=== PATIENT | male | born 1950 | race Caucasian/White ===

== ENCOUNTER 2016-05-17 10:48 | Inpatient (IN) | payer BC ==
[~2016-05-17] VITALS: Ht 157.5 cm; Wt 63.0 kg
--- NOTE | ~2016-05-17 | ECH ---
Transthoracic Echocardiography Report (TTE) Demographics Patient Name BRANDEE WATSON, Date of Study 05/17/2016 WILLIAM Jensen Patient Number [id number] Visit Number [id number] Date of 1950 Room Number 419 Gender Male Number Age 65 year(s) Referring Sally Crocker Director Inbound Sales Martha Rodriguez Physician Bette Mack MD [facility] Yao Roman MD Physician Interpreting Julianna Barrow Physiologist Physician Supervising Ordering Yao Roman MD/MLP Physician Nurse Stress Beamster Conclusions Summary Technically good exam. The estimated left ventricular ejection fraction is 30-35%. Diastolic assessment reveals Grade I diastolic dysfunction. Informed consent was obtained, bubble study was done, there is no evidence for a PFO or ASD. Procedure Type of Study TTE procedure:Echo Complete SF. Procedure Date Date: 05/17/2016 Start: 02:21 PM Technical Quality: Good visualization Indications:CVA, Ischemic Cardiomyopathy, Diabetes, Coronary artery disease and Hypertension. Additional Indications:History of MS/ETOH abuse Appropriate Use Criteria: 9 Height: 62 inches Weight: 136 pounds BSA: 1.62 m Rhythm: NSR HR: 64 bpm BP: 164/87 mmHg Allergies - No known allergies. M-Mode/2D Measurements LV Diastolic Dimension: 5.1 cm LV Systolic Dimension: 3.52 cm LV Septum Diastolic: 0.84 cm LV PW Diastolic: 0.87 cm AO Root Dimension: 2.73 cm Cardiac Output: 2.98 l/min LA Dimension: 3.58 cm Cardiac Index: 1.84 l/min*m RV Diastolic Dimension: 3.27 cm LA volume index: 26 ml/m LVOT: 1.89 cm LVOT VTI: 16.61 cm RV Base: 3.6 cm LV Stroke volume: 46.58 ml RV Mid: 2 cm LV Stroke volume index: 28.75 ml/m TAPSE: 2 cm TDI-S': 11 cm/s Doppler Measurements AV Peak Velocity: 1.2 m/s MV Peak E-Wave: 0.78 m/s AV Peak Gradient: 5.76 mmHg MV Peak A-Wave: 0.97 m/s AV Mean Gradient: 3.33 mmHg MV E/A Ratio: 0.8 LVOT Peak Velocity: 0.71 m/s MV P1/2t: 48.5 msec AV Area (Continuity):1.65 cm MV Deceleration Time: 186.5 msec MV Area (PHT): 4.54 cm PV Peak Velocity: 0.79 m/s E' Septal Velocity: 0.05 m/s PV Peak Gradient: 2.51 mmHg E' Lateral Velocity: 0.07 m/s A' Septal Velocity: 0.09 m/s A' Lateral Velocity: 0.09 m/s RA Area: 9.87 cm Findings Left Ventricle Normal left ventricle size and function. Diastolic assessment reveals Grade I diastolic dysfunction. Right Ventricle Normal right ventricle structure and function. Left Atrium Normal left atrial size. Informed consent was obtained, bubble study was done, there is no evidence for a PFO or ASD. Right Atrium Normal right atrial size. Mitral Valve Normal mitral valve structure and function. Mild mitral regurgitation by color Doppler. Aortic Valve Normal aortic valve structure and function. Tricuspid Valve Normal tricuspid valve structure and function. Trivial tricuspid regurgitation by color Doppler. Insufficient jet to calculate pulmonary pressures. Pulmonic Valve Normal pulmonic valve structure and function. Pericardial Effusion No evidence of pericardial effusion. Miscellaneous Visualized portions of the aortic root and ascending aorta appear normal in size. Pleural Effusion No evidence of pleural effusion. Contractility Score LV regional wall motion:(0-Non visualized 1-Normal 2-Hypokinesis 3-Akinesis 4-Dyskinesis 5-Aneurysm) Signature
[~2016-05-17 10:48] MED LIST: ASA CHILDREN'S81 MG PO; COREG DPS3.125 MG PO; HEPARIN IV; HEPARIN5000 UNIT1 IV; HUMALOG, N100 UNITS/ SQ; HYTONE-DPS 2.5%30 GM TP; LEVAQUIN DPS750 MG PO; LEVEMIR100 UNIT/1 SQ; LIPITOR40 MG PO; NORMAL SALINE FL5 ML IV; PROAIR HFA8.5 GM IH; ROCALTROL DP0.25 MCG PO; SODIUM BIC50 MEQ/50 IV; THERA1 EACH PO
--- NOTE | 2016-05-20 13:16 | CO ---
ADMIT: 05/17/2016 RM/LOC: 419 [facility] MR#: [id number] 2620 [facility] [address] [place], [place] [address] WILLIAM CARDOSO [address] [place] [address] Consultation SEX: M AGE: 65 : 1950 DATE OF CONSULTATION: 05/17/2016 ATTENDING PHYSICIAN: Harley Samayoa CONSULTING PHYSICIAN: Obi Zavala MD REASON FOR CONSULT: Stroke-like symptoms. MARGARETTE Cha dictating for Obi Zavala MD HISTORY OF PRESENT ILLNESS: Mr. aVnce is a 65-year-old man, who I had the opportunity to consult for Cardiology regarding his stroke-like symptoms. The patient has significant personal history of coronary artery disease. The patient also has significant family history of coronary artery disease in first degree relatives. The patient is a never smoker. The patient admitted to heavy alcohol use for several years and has remained abstinent since he was 35 years old. The patient stated that his stroke-like symptoms were similar to his symptoms approximately 3 months ago. When he was evaluated for a stroke and underwent a cath, which revealed a severe 3-vessel heart disease. The patient stated that his symptoms began this last Monday. His noticed that he had speech deficit. The patient stated that he went to work the next day on Monday and his co-workers realized he was talking differently. The patient also stated that he developed a sense of chest pain in his chest when he was moving boxes and this went away when he sat down to rest. The patient stated that there was no radiation with the pain and he rated the pain a 7/10. In the past, he has had fainting episodes at work without loss of consciousness. The patient states that the pain has not reoccurred since his episode yesterday. PAST MEDICAL HISTORY: Significant for coronary artery disease, history of 3- vessel heart disease, ischemic cardiomyopathy, type 2 diabetes, hypertension, chronic kidney disease, and diabetic neuropathy. PAST SURGICAL HISTORY: Significant for hernia repair, heart cath in December 2015, eye surgery, cataract extraction, and sinus surgery. FAMILY HISTORY: His father from heart disease at age 64, and his mother at age 65 from diabetes. He also states his brothers from diabetes, but he does not know what age. SOCIAL HISTORY: The patient is currently for 33 years. He currently works at [id number]. He states that he works really long hours. The patient admits to 1 cup of caffeine per day. He also admits to heavy alcohol use in the past, but quit at age 34. He denies drug abuse or tobacco use. ALLERGIES: NO KNOWN DRUG ALLERGIES. ADMIT: 05/17/2016 RM/LOC: 419 [facility] MR#: [id number] [address] [address] WILLIAM CARDOSO [address] [place] [address] Consultation SEX: M AGE: 65 : 1950 HOME MEDICATIONS: 1. Aspirin 81 mg. 2. Atorvastatin 20 mg tablet. 3. Levemir 20 units. 4. Carvedilol 6.25 mg b.i.d. 5. Ramipril 2.5 mg daily. 6. Pantoprazole 40 mg daily. 7. Plavix 75 mg daily. 8. Atorvastatin 40 mg daily. 9. NovoLog sliding scale a.c. and HS. REVIEW OF SYSTEMS: GENERAL: The patient tires easily, and he first notices it at work when he is lifting heavy things and walking a lot. Recent fever, chills, and sweats. The patient denies recent weight gain or weight loss. EYES: The patient wears glasses. He admits to blurry vision, cataracts, partial or total loss of vision, but denies glaucoma. ENT: Denies hearing loss or problems with nose, mouth or throat. RESPIRATORY: The patient admits to wheezing, bronchitis, chronic cough, snoring loudly, waking up 2 to 3 times per night, and tiring first thing in the morning. The patient denies asthma or bloody sputum. GASTROINTESTINAL: The patient admits to reflux, but denies heartburn, difficulty swallowing, hiatal hernia, stomach ulcer, gallbladder or liver disease, or bloody stools. GENITOURINARY: The patient admits to kidney stones and kidney failure, but denies blood in urine, problems with urination or urinary infection. MUSCULOSKELETAL: The patient admits to muscle or joint pains, but denies arthritis or gout. ENDOCRINE: Denies history of thyroid dysfunction or diabetes. HEMATOLOGIC AND LYMPHATIC: The patient admits to bleeding problems, but denies anemia or cancer. NEUROLOGIC: The patient admits to numbness and tingling episodes, but denies chronic headache, stroke, or seizure disorder. PSYCHIATRIC: Denies history of mental illness or feelings of depression. PHYSICAL EXAMINATION: Per Dr. Zavala. VITAL SIGNS: Temperature is 97.4, pulse is 74, respirations 13, BP is 164/87, O2 saturation is 98% on room air, weight is 136, which is up 1 pound since this morning. Speech deficit and vision deficit are noted. SKIN: [place], warm and dry. EYES: Sclerae clear. No xanthelasmas. ENT: Oral mucosa is pink and moist. No jugular venous distention or carotid bruits. CHEST: Respirations are even and unlabored. Lungs are clear to auscultation. HEART: Regular rate and rhythm. Normal S1, S2. No murmurs, rubs or gallops. ABDOMEN: Soft and nontender. MUSCULOSKELETAL: Gait is normal. EXTREMITIES: Peripheral pulses palpable. No clubbing, cyanosis or edema. PSYCHIATRIC: Alert and oriented. Mood and affect are appropriate. ADMIT: 05/17/2016 RM/LOC: 419 [facility] MR#: [id number] [address] [address] WILLIAM CARDOSO [address] [place] [address] Consultation SEX: M AGE: 65 : 1950 DIAGNOSTIC DATA: Sodium is 141, potassium is 4.0, chloride is 107, bicarb is 26, BUN is 27, creatinine is 1.7, and glucose is 251. White blood cell count is 8.5, hemoglobin is 14.4, hematocrit is 42.6, platelets are 176, magnesium is 2.4, calcium is 8.3, troponin is 7.630, triglycerides are 76, cholesterol is 132, and GFR is 42. Chest x-ray revealed no acute cardiopulmonary process. EKG revealed ST elevation in septal leads and ischemic changes. IMPRESSION AND PLAN: Per Dr. Zavala. 1. Stroke-like symptoms. 2. Elevated troponin. He has severe 3-vessel coronary artery disease that is not amenable to CABG. He is getting exertional chest pain at work. Suspect increase in troponin secondary to severe coronary artery disease and possible stroke. At this time, we will trend enzymes and start heparin, add Imdur and do an echocardiogram. 3. Coronary artery disease. 4. Diabetes mellitus. 5. Chronic kidney disease. 6. Hypertension. 7. Ischemic cardiomyopathy with 40% ejection fraction. Thank you for the Cardiology consult. I have read and agreed with documentation that has been completed regarding this visit. By signing this record, I attest that the documentation was completed in my physical presence and is an accurate record of the encounter. SAULO Cha Student / Obi Zavala MD / robert JOB #: [id number] CC: Harley Samayoa, Attending Physician Harley Samayoa, Family Physician
[2016-05-20] MEDS ORDERED: COREG DPS6.25 MG PO (21:09)
[2016-05-20] MEDS ORDERED: ALTACE2.5 MG PO (21:09)
[2016-05-20] MEDS ORDERED: IMDUR DPS30 MG PO (21:10)
[2016-05-20] MEDS ORDERED: PROTONIX40 MG PO (21:10)
[2016-05-20] MEDS ORDERED: ASA325 MG PO (21:10)
[2016-05-20] MEDS ORDERED: PLAVIX75 MG PO (21:10)
--- NOTE | 2016-05-25 10:42 | HP ---
ADMIT: 05/17/2016 RM/LOC: 419 [facility] MR#: [id number] 26[address] [facility] [address] [place], [place] [address] IRVINWILLIAM COTO [address] [place] [address] History and Physical SEX: M AGE: 65 : 1950 DATE OF SERVICE: CHIEF COMPLAINT: Slurred speech and chest pain with exertion. HISTORY OF PRESENT ILLNESS: The patient is a 65-year-old male with known history of coronary artery disease with severe 3-vessel disease, not to be a good candidate for surgery with medical therapy recommended, also has a history of noncompliance, uncontrolled diabetes, hyperlipidemia, peripheral neuropathy, hypertension, and notes approximately 48 hours of slurred speech. Denies any significant other deficits, however, he does have some chronic tingling in his arms. Also notes some exertional chest pain. He was last seen by myself little over 2 months ago. He was instructed to follow up in 1 week. He denies any other concerns or complaints at this time. PAST MEDICAL HISTORY: Coronary artery disease, diabetes, hyperlipidemia, BPH, CKD, NSTEMI, congestive heart failure, hypoxic respiratory failure, acute kidney injury, in December 2015 he had 1 to 39% plaque stenosis of bilateral carotids. PAST SURGICAL HISTORY: Hernia and finger. ALLERGIES: NONE. MEDICATIONS: 1. Levemir 20 units at night. 2. Coreg 6.25 b.i.d. 3. Ramipril 2.5 daily. 4. NovoLog sliding scale. 5. Plavix 75 once a day. 6. Protonix 40 daily. 7. Lipitor 40 at bedtime. 8. Aspirin 81 daily. 9. Rocaltrol. FAMILY HISTORY: Coronary artery disease. REVIEW OF SYSTEMS: Forty-eight hours of slurred speech, exertional chest pain, chronic numbness in his arms. SOCIAL HISTORY: Denies tobacco, alcohol, or drug use. PHYSICAL EXAMINATION: VITAL SIGNS: Blood pressure 184/84, pulse 74, temp 96.6, weight is 143, and O2 sats 98% on room air. GENERAL: He is alert, awake, and oriented. He has had some slurred speech. HEENT: Head is normocephalic, atraumatic. Pupils round and reactive to light. HEART: Regular rate and rhythm. LUNGS: Slightly diminished throughout. ABDOMEN: Soft, nontender. No significant clubbing, cyanosis, or edema. NEURO: Cranial nerves II through XII grossly intact. No focal, motor, or ADMIT: 05/17/2016 RM/LOC: 419 [facility] MR#: [id number] [address] [address] WILLIAM CARDOSO [address] [place] [address] History and Physical SEX: M AGE: 65 : 1950 sensory deficits. ASSESSMENT: This 65-year-old male with: 1. Known coronary artery disease, not a surgical candidate. 2. Slurred speech, probable cerebrovascular accident. 3. Diabetes. 4. Noncompliance. 5. Hyperlipidemia. 6. Hypertension. 7. History of oxa-AW-wbnzjpmpv myocardial infarction. 8. Chronic kidney disease. 9. History of respiratory failure. PLAN: We will admit him to telemetry. Consult Cardiology for his exertional chest pain. Consult Neurology for his slurred speech and possible CVA. We will get a chest x-ray. Trend his cardiac enzymes. Check an echo as well as an MRI. He had his carotid done approximately 5 months ago and we will defer to Cardiology on this. We will check appropriate blood work, adjust his insulin and treat accordingly. Harley Samayoa MD/ robert JOB #: [id number] CC: Harley Samayoa, Attending Physician Harley Samayoa, Family Physician
--- NOTE | 2016-05-31 10:27 | CO ---
ADMIT: 05/17/2016 RM/LOC: 419 [facility] MR#: [id number] 2620 [facility] [address] [place], [place] [address] WILLIAM CARDOSO [address] [place] [address] Consultation SEX: M AGE: 65 : 1950 DATE OF CONSULTATION: 05/17/2016 ATTENDING PHYSICIAN: Harley Samayoa CONSULTING PHYSICIAN: Frederick Amos MD REASON FOR CONSULTATION: Ischemic stroke. HISTORY OF PRESENT ILLNESS: The patient is a 65-year-old gentleman with past medical history as below, who was admitted for evaluation of stroke-like symptoms, which included right facial weakness and speech problem. This started on Monday05/15/2016. As per medication reconciliation, the patient is on Plavix 75 daily. However, talking to the patient and his , through medical interpreter, they do not recall this name. I am willing to confirm this with the pharmacy. The patient reports that he takes aspirin 81 mg daily. The patient has elevated troponin and was already seen by Cardiology, who would like to start heparin drip for ACS protocol. PAST MEDICAL HISTORY: Positive for diabetes x15 years with complication of diabetic neuropathy, CKD, hypertension, and hyperlipidemia. ALLERGIES: NO KNOWN DRUG ALLERGIES. FAMILY HISTORY: Father of a heart attack at 65. Mother had diabetes. He denies any strokes in family. SOCIAL HISTORY: He denied smoking or alcohol use. From the chart, he is a remote smoker and remote alcoholic. MEDICATIONS: Reported in medication reconciliation are Levemir, ramipril, carvedilol, pantoprazole, atorvastatin, and NovoLog. REVIEW OF SYSTEMS: All systems reviewed, negative except as per HPI. Positive symptoms are neurological, speech, numbness in the feet, tingling, cardiovascular, dyspnea on exertion, and chest pain. PHYSICAL EXAMINATION: VITAL SIGNS: Temperature 97.4, heart rate 74, respirations 18, blood pressure 164/87, saturation 98% on room air. GENERAL: The patient appears to be in no acute discomfort. HEAD: Normocephalic. NECK: Supple. CHEST: Normal respiratory rises. CARDIOVASCULAR: Regular rate and rhythm. ABDOMEN: Soft and nondistended. EXTREMITIES: No clubbing or cyanosis. NEUROLOGICAL: The patient appears awake, alert, and oriented appropriately. ADMIT: 05/17/2016 RM/LOC: 419 [facility] MR#: [id number] [address] [address] WILLIAM CARDOSO [address] [place] [address] Consultation SEX: M AGE: 65 : 1950 He has ixoj-yj-sudhalnq dysarthria. There is no aphasia. He is fluent, repeats well; naming, physical past intact. He is euthymic and affect is congruent with mood. Cranial nerves; visual taylor are intact. Extraocular muscles are intact. Pupils are equal, reactive. Facial sensation is normal. There is mild right facial weakness. Hearing to voice is intact. Uvula midline. Palatal arch is symmetric. Shoulder shrug symmetric. Tongue is midline, fairly moveable. Motor examination reveals full strength throughout. Normal tone. No drift. Fine motor movements are intact. Sensory examination to touch is nonlateralizing. Coordination, he has mild dysmetria with bilaterally. Reflexes are brisk and symmetric in upper extremities, reduced knee reflexes and absent ankle reflexes. Toes are downgoing bilaterally. Gait, he has a mildly wide-based gait. LABORATORY DATA: MRI is positive for a left frontal ischemic stroke. A1c is 9.6. Troponin is elevated at 7.3, CK-MB 3.9, CK is 112. ASSESSMENT: 1. Ischemic stroke. 2. Hypertension. 3. Hyperlipidemia. 4. Uncontrolled diabetes. 5. Increased troponins. 6. Previous noncompliance with medications. PLAN: The heparin drip will be started as ordered by Cardiology without a bolus for ACS protocol. I would like to hold his antiplatelets for now due to increased bleeding risk in regard to his ischemia. Ischemic stroke is fairly small. Therefore, I feel that the heparin drip will be okay to use. We will have hourly neuro checks 4 hours after starting heparin and then every couple hours afterwards. For further work up, we will obtain carotid Doppler, MRI head, and lipid panel will be obtained in the morning while his statin will be continued. Thank you very much for this interesting consultation. We will continue to follow. Frederick Amos MD/ robert JOB #: [id number] CC: Harley Samayoa, Attending Physician Harley Samayoa, Family Physician
--- NOTE | 2016-06-26 20:55 | DS ---
ADMIT: 05/17/2016 RM/LOC: 419 [facility] [id number] [id number] [address] [address] BRANDEE WATSON, WILLIAM Mikey [address] [place] [address] General Discharge Summary SEX: M AGE: 65 : 1950 ADMISSION DATE: 05/17/2016 DISCHARGE DATE: 05/19/2016 DISCHARGE DIAGNOSES: Include: 1. Ischemic parietal stroke. 2. Non-ST segment elevation myocardial infarction. 3. Coronary artery disease. 4. Ischemic cardiomyopathy. 5. Type 2 diabetes, noncompliant. 6. Hyperlipidemia. 7. Hypertension. 8. Chronic kidney disease. 9. . 10.Prolonged QT interval. CONSULTANTS: Neuro and Cardiology. HISTORY OF PRESENT ILLNESS: Please refer to admission H and P. HOSPITAL COURSE: The patient was admitted. Cardiology and Neurology were consulted and echo were obtained. He was started on heparin drip. Speech Therapy followed the patient. Patient was determined safe to discharge on 05/09/2016 on Plavix and aspirin. DISCHARGE MEDICATIONS: Please see discharge MAR. PROCEDURES: None. LABORATORY DATA: On 05/19/2016; white count 9.9, hemoglobin 12.7, . On 05/19/2016; sodium 146, potassium 3.6, chloride 113. CO2 is 25, BUN is 23, glucose 67, triglycerides 90, HDL of 32, LDL is 80. Troponins were 5.8, 7.0, and 6.9. On 05/17/2016 IMAGING DATA: MRI on 05/17 showed acute nonhemorrhagic ischemia that is in the mid left parietal lobe with no mass or mass effect with moderate diffuse edema. Mild scattered deep white matter changes. MRA showed an area of ADMIT: 05/17/2016 RM/LOC: 419 [facility] MR#: [id number] [address] [facility] [address] [place], [place] [address] WILLIAM CARDOSO [address] [place] [address] General Discharge Summary SEX: M AGE: 65 : 1950 ischemia in the left hemisphere distribution, no significant stenosis or any other is identified. Chest x-ray showed no acute cardiopulmonary process. On 05/19/2016, chest x-ray negative study. Ultrasound of the carotids . Echo on 05/17/2016; EF of 30%-35%. Diastolic grade 1 dysfunction there is no evidence of PFO or ASD. EKG shows sinus rhythm, LVH, diffuse ST=T wave abnormality, hypertrophy and/or ischemia and a prolonged QT interval. FOLLOWUP: Follow up with myself in 4 or 5 days and follow up with Neurology and Cardiology. CBC and BMP. Harley Samayoa MD/ robert JOB #: [id number] CC: Harley Samayoa MD, Attending Physician Harley Samayoa MD, Family Physician Frederick Amos MD
== END 2016-05-19 17:40 | disposition home or self-care (01) | DRG 65 ==
LOC: 4PCU 10:48
PROVIDERS: ADMIT Family Medicine
DX: I63.9 Cerebral infarction, unspecified (principal); I13.0 Hypertensive heart and chronic kidney disease with heart failure and stage 1 through stage 4 chronic kidney disease, or unspecified chronic kidney disease; I50.42 Chronic combined systolic (congestive) and diastolic (congestive) heart failure; E11.22 Type 2 diabetes mellitus with diabetic chronic kidney disease; E11.42 Type 2 diabetes mellitus with diabetic polyneuropathy; R79.89 Other specified abnormal findings of blood chemistry; N18.3 Chronic kidney disease, stage 3 (moderate); I25.10 Atherosclerotic heart disease of native coronary artery without angina pectoris; E78.5 Hyperlipidemia, unspecified; R29.810 Facial weakness; I25.5 Ischemic cardiomyopathy; N40.0 Benign prostatic hyperplasia without lower urinary tract symptoms; F10.21 Alcohol dependence, in remission; I65.23 Occlusion and stenosis of bilateral carotid arteries; Z79.4 Long term (current) use of insulin; I25.2 Old myocardial infarction; Z79.02 Long term (current) use of antithrombotics/antiplatelets; Z91.19 Patient's noncompliance with other medical treatment and regimen; Z79.82 Long term (current) use of aspirin; Z87.891 Personal history of nicotine dependence; Z82.49 Family history of ischemic heart disease and other diseases of the circulatory system